=== PATIENT | female | born 1990 | race Caucasian/White ===

== ENCOUNTER 2017-01-21 05:20 | Inpatient (IN) ==
[2017-01-21] MEDS ORDERED: CITRIC ACID/SODIUM CITRATE 30 ML UDCUP PO ONE (05:33)
[2017-01-21] MEDS ORDERED: FAMOTIDINE 20 MG/2 ML VIAL IV ONE (05:33)
[2017-01-21] MEDS ORDERED: ceFAZolin 2,000 MG in PREMIX 1 EACH IV ONE (05:43)
[2017-01-21] MEDS: LACTATED RINGERS 1,000 ML IV SCH ×3 (05:50→21:45)
[2017-01-21 06:31] LABS: Basophils % 0.2 % (0.0-0.8); Eosinophils # 0.1 10*3/uL (0.0-0.87); Eosinophils % 0.5 % (0.00-10.9); Hematocrit 34.2 VOL% (35.7-47.0); Hemoglobin 11.8 GM/DL (12.0-16.0); Immature Granulocytes % 0.6 %; Immature Granulocytes Absolute 0.06 #; Lymphocytes # 2.5 10*3/uL (1.4-4.0); Lymphocytes % 27.1 % (21.3-54.2); Mean Corpuscular HGB Conc 34.5 GM/DL (32-36); Mean Corpuscular Hemoglobin 30 PG (27-34); Mean Corpuscular Volume 85.9 FL (87-102); Mean Platelet Volume 10.1 FL (9.6-12.0); Monocytes # 0.6 10*3/uL (0.11-0.8); Monocytes % 5.9 % (1.7-12.7); Neutrophils # 6.2 10*3/uL (1.4-7.4); Neutrophils % 65.7 % (38.7-73.9); Platelet Count 239 T/CUMM (130-400); Red Blood Count 3.98 MC/CUMM (3.8-5.5); Red Cell Distribution Width 13.4 % (9.3-17.3); White Blood Count 9.4 T/CUMM (4-12)
[2017-01-21 07:05] LABS: Alanine Aminotransferase 18 U/L (13-56); Albumin 2.6 G/DL (3.4-5.0); Alkaline Phosphatase 123 U/L (45-117); Aspartate Amino Transferase 19 U/L (0-37); Bilirubin,Total < 0.39 MG/DL (0.2-1.0); Blood Urea Nitrogen 11 MG/DL (7-18); Calcium 8.7 MG/DL (8.5-10.1); Glucose 80 MG/DL (74-106); Sodium 140 MMOL/L (136-145); Total Protein 6.1 G/DL (6.4-8.3)
[2017-01-21 07:06] LABS: Osmolality,Calculated 276.4 MOS/KG (273-304); Potassium 3.5 MMOL/L (3.5-5.1)
[2017-01-21] MEDS ORDERED: OXYTOCIN/LR 20 UNIT/1,000 ML BAG IV ONE ×4 (07:16→09:55)
--- NOTE | 2017-01-21 07:29 | OB/GYN History & Physical ---
History of Present Illness Chief complaint: at 39+ weeks previous admitted for elective repeat History of present illness: Ms. Martinez is a 26 year old female 2 para 1 at 39+ weeks estimated gestational age previous admitted for elective repeat. The risks benefits alternatives were explained patient detail and informed us is obtained for the above procedure Home Medications Medication Instructions Recorded Confirmed Type Folic Acid 1 tablet PO DAILY 01/21/17 01/21/17 History [place]-3 Fatty Acids [Fish Oil] 1 tablet PO DAILY 01/21/17 01/21/17 History No122/Iron/Folic Acid 1 tablet PO DAILY 01/21/17 01/21/17 History [ Multi Tablet] Allergies Allergy/AdvReac Type Severity Reaction Status Date / Time Amoxicillin Allergy Verified 10/31/16 20:10 12 point system: reviewed and no additional remarkable complaints except as stated Medical,Surgical,& Family Hx - Medical History Neurology: No history of: Seizures - Surgical History Reproductive Surgeries: Surgical HX of;: Section - Family History Family History: Reports;: Family Cancer (PGF BLADDER, MGF LUNG), Family Hypertension (DAD) - Social History Smoking Status: Never smoker Frequency of Alcohol Use: None Type of Drug Use: None Exam [employer] - Constitutional General appearance: no acute distress - Head Head exam: Present: normal inspection, normocephalic, atraumatic - Eye Eye exam: Present: EOMI - Neck Neck exam: Present: normal inspection - Respiratory Respiratory exam: Present: clear to auscultation bilaterally - Breast Breasts: as per HPI Menstruation: as per HPI - Cardiovascular Cardiovascular exam: Present: regular rate and rhythm - GI/Abdominal GI/Abdominal exam: Present: normal bowel sounds - Extremities Exam Extremities exam: Present: normal inspection, normal capillary refill - Back Exam Back exam: Present: normal inspection - Neurological Exam Neurological exam: Present: alert, oriented X3 - Psychiatric Psychiatric exam: Present: normal affect, normal mood - Skin Skin exam: Present: normal color Assessment and Plan (1) with 39 completed weeks gestation Status: Acute Current Visit: Yes (2) Previous section Status: Acute Current Visit: Yes Results - Labs CBC & BMP: 01/21/17 06:25 01/21/17 06:25
[2017-01-21] MEDS ORDERED: PHENYLEPHRINE 1 MG/10 ML SYRINGE IV ONE (07:46)
[2017-01-21] MEDS ORDERED: ONDANSETRON 4 MG/2 ML VIAL ONE (07:46)
[2017-01-21 09:47] LABS: Apearance,Urine CLEAR (Clear); Bilirubin,Urine Negative (Negative); Blood, Urine Negative (Negative); Glucose,Urine (UA) Negative (Negative); Ketones,Urine Negative (Negative); Mucus,Urine Occasional /LPF (Occasional); Nitrite,Urine Negative (Negative); Protein,Urine Negative; RBC,Urine <1 /HPF (0-4); Squamous Epithelial Cell,Urine Occasional /HPF (0-10); Urine Color Yellow (Yellow); Urine Specific Gravity 1.008 (1.001-1.035); Urine Urobilinogen < 2.0 EU/DL (0.2-1.0); WBC,Urine 2 /HPF (0-6)
[2017-01-21] MEDS ORDERED: MEASLES/MUMPS/RUBELLA VACCINE 0.5 ML VIAL SUBCUT ONE (09:55)
[2017-01-21] MEDS ORDERED: BISACODYL 10 MG SUPP RECTAL PRN (09:55)
[2017-01-21] MEDS ORDERED: ACETAMINOPHEN 325 MG TABLET PO PRN (09:55)
[2017-01-21] MEDS ORDERED: BENZOCAINE 20%/MENTHOL 0.5% SPRAY 56 GM CAN TOP PRN (09:55)
[2017-01-21] MEDS ORDERED: ONDANSETRON 4 MG/2 ML VIAL IV PRN (09:55)
[2017-01-21] MEDS ORDERED: oxyCODONE/ACETAMINOPHEN 5-325 MG TABLET PO PRN ×2 (09:55)
[2017-01-21] MEDS ORDERED: HYDROCORTISONE 2.5% RECTAL CREAM 30 GM TUBE TOP PRN (09:55)
[2017-01-21] MEDS ORDERED: RHO(D) IMMUNE GLOBULIN 300 MCG SYRINGE IM ONE (09:55)
[2017-01-21] MEDS ORDERED: LANOLIN 50% CREAM 0.3 OZ TUBE TOP PRN (09:55)
[2017-01-21] MEDS ORDERED: DIPH/TET/ACEL PERT BOOSTER VACCINE 0.5 ML VIAL IM ONE (09:55)
[2017-01-21] MEDS ORDERED: WITCH HAZEL PADS 100/JAR TOP PRN (09:55)
--- NOTE | 2017-01-21 09:55 | Operative Note ---
Date of procedure: 01/21/17 Pre-op diagnosis: 39 weeks previous Post-op diagnosis: same Procedure: This is Dr. Will dictating operative note: Preoperative diagnosis intrauterine intrauterine at [39] weeks previous Postoperative diagnosis same Procedure repeat low transverse section Surgeon Dr. Will Anesthesia spinal Findings liveborn [male] infant 9 pounds 10 ounces Complications none Estimated blood loss [400] mL Disposition patient to recovery room in [stable] condition. to nursery in [stable] condition Operative description: After the risks benefits and alternatives were explained to the patient in detail and informed consent was obtained, the patient was taken to the operating room where she was placed in the supine position. After achieving appropriate anesthesia the abdomen was prepped and draped in the usual sterile fashion. A Licea catheter was placed without difficulty. After the appropriate time out and after adequate anesthesia was ascertained a Pfannenstiel skin incision was made and carried down through the subcutaneous tissue down to the fascia. The fascia was nicked in the midportion and undermined and incised both laterally and cephalad using sharp dissection with the curved Baker scissors. 2 [place] clamps were used to elevate the rectus fascia superiorly which was bluntly and sharply dissected away from the rectus muscle below. This was repeated inferiorly. The rectus muscles were then bluntly in the midline the peritoneum identified grasped with 2 curved hemostats and entered sharply using the curved Metzenbaum scissors. A bladder blade was then placed in the pelvis and a bladder flap was created off the lower uterine segment using sharp dissection with the Metzenbaum scissors. The bladder blade was then repositioned. A transverse incision was made across the lower uterine segment down to the amnion. Entry into the amnion revealed [ clear] amniotic fluid. The uterine incision was then extended laterally using bilateral finger fractionation. Upon palpation the presenting part was [vertex ] which was gently elevated out of the pelvis and delivered onto the abdominal wall using appropriate fundal pressure. The infant's nose and oropharynx were bulb and DeLee suctioned and the had spontaneous cry delivery. The cord was doubly clamped and cut and the infant was handed over to the team for care. Cord blood was obtained. The placenta was delivered manually and IV Pitocin antibiotics and Zofran were begun. The uterus was then exteriorized and placed in a wet laparotomy sponge. 2 fingers wrapped around a wet laparotomy sponge were used to remove all residual membranes from the uterine cavity. The uterus was then closed in 2 layers. The first layer of myometrium was closed with #1 Monocryl suture in an inner locking fashion beginning at both angles and overlapping slightly in the midline. The second layer of myometrium was closed with #1 Monocryl suture in a running imbricating stitch beginning at the right angle and continuing the length of the uterine incision. Hemostasis was noted to be excellent. The posterior cul-de-sac was then irrigated and cleansed with a wet laparotomy sponge and the uterus was placed back in the abdominal cavity. Both pericolic gutters were then irrigated and cleansed with a wet lap sponge. The uterine incision was then re-irrigated and again noted to be hemostatic. All counts were noted to be correct. The subcutaneous tissue was then closed using 3-0 Vicryl suture in a running fashion. The subfascial area was made hemostatic using electrocautery and closed with #1 PDS suture in a running fashion beginning at both angles and overlapping slightly in the midline. The subcutaneous tissue was irrigated and made hemostatic using electrocautery and closed with 2-0 Vicryl suture in a running fashion and the skin was closed with wide skin gilda and a sterile pressure bandage was applied to the wound. All sponge needle and instrument counts were correct -3 at the end of the procedure. The patient's urine was [ clear] both at the beginning in the end of the procedure. The patient was taken to the recovery room in stable condition Anesthesia: spinal Surgeon / Physician: Hipolito Will Estimated blood loss: other (400) Specimens: none sent Condition: stable Disposition: floor Results - Labs CBC & BMP: 01/21/17 06:25 01/21/17 06:25 Discharge Plan - Discharge Medications No Action [place]-3 Fatty Acids [Fish Oil] 1 tablet PO DAILY Folic Acid 1 tablet PO DAILY No122/Iron/Folic Acid [ Multi Tablet] 1 tablet PO DAILY - Follow Up or Referral - Forms/Instructions
--- NOTE | 2017-01-21 11:00 | XRay Report ---
History is needle miscount AP and lateral film of the lower abdomen and pelvis performed. Abdominal wall gilda present. There is a tiny, 5 mm long thin metallic foreign body present in the soft tissues of the anterior abdominal wall just superior to the staple line. This is much smaller than would be expected from the clinically stated missing needle. The upper abdomen was not included on the film. An additional image could be considered to exclude a migrated peritoneal needle. Findings personally discussed with the ordering service at the 10:30 AM PROCEDURE INTERPRETED AT [facility] DEPARTMENT OF RADIOLOGY Final Report Signed by: Dr. Leonora Billy
[2017-01-21] MEDS ORDERED: fentaNYL 100 MCG/2 ML VIAL ONE (11:21)
[2017-01-21] MEDS ORDERED: MORPHINE 10 MG/10 ML VIAL ONE (11:22)
[2017-01-21] MEDS ORDERED: hydrOXYzine HCL 25 MG/1 ML VIAL IM PRN ×2 (11:35→13:25)
[2017-01-21] MEDS ORDERED: HYDROmorphone 2 MG/1 ML VIAL IV PRN (11:35)
[2017-01-21] MEDS ORDERED: diphenhydrAMINE 50 MG/1 ML VIAL IV PRN (11:35)
[2017-01-21] MEDS ORDERED: SODIUM CHLORIDE 0.9% 1,000 ML IV SCH (12:00)
[2017-01-21] MEDS ORDERED: LACTATED RINGERS 1,000 ML IV SCH (12:00)
[2017-01-21] MEDS ORDERED: PROMETHAZINE INJ 25 MG in SODIUM CHLORIDE 0.9% 50 ML IV PRN (12:40)
[2017-01-21] MEDS ORDERED: PROMETHAZINE 25 MG/1 ML VIAL ONE (12:41)
[2017-01-21] MEDS ORDERED: PROMETHAZINE INJ 25 MG in SODIUM CHLORIDE 0.9% 50 ML IM PRN (12:46)
[2017-01-21] MEDS ORDERED: PROMETHAZINE 25 MG/1 ML VIAL IM PRN (12:54)
--- NOTE | 2017-01-21 13:06 | Anesthesia Post-Op ---
Anesthesia Post OP - Post Ansesthetic Evaluation Patient seen in post op: Yes Resp: within normal limits CV: within normal limits Mental: within normal limits Temp: within normal limits [id number]-[id number]-[id number]: within normal limits Nausea and Vomiting: within normal limits Pain: within normal limits
[2017-01-21] MEDS ORDERED: OXYTOCIN 10 UNIT/ML VIAL ONE (13:27)
[2017-01-21] MEDS ORDERED: FUROSEMIDE 40 MG/4 ML VIAL IV ONE (20:11)
[2017-01-21] MEDS: DOCUSATE SODIUM 100 MG CAPSULE PO SCH (20:33)
[2017-01-22 06:48] LABS: Basophils % 0.3 % (0.0-0.8); Eosinophils # 0.1 10*3/uL (0.0-0.87); Eosinophils % 0.4 % (0.00-10.9); Hemoglobin 11.4 GM/DL (12.0-16.0); Immature Granulocytes % 0.4 %; Immature Granulocytes Absolute 0.05 #; Lymphocytes # 1.7 10*3/uL (1.4-4.0); Lymphocytes % 13.9 % (21.3-54.2); Mean Corpuscular HGB Conc 34.5 GM/DL (32-36); Mean Corpuscular Hemoglobin 30 PG (27-34); Mean Corpuscular Volume 85.7 FL (87-102); Mean Platelet Volume 10.2 FL (9.6-12.0); Monocytes # 0.8 10*3/uL (0.11-0.8); Monocytes % 6.6 % (1.7-12.7); Neutrophils # 9.3 10*3/uL (1.4-7.4); Neutrophils % 78.4 % (38.7-73.9); Platelet Count 191 T/CUMM (130-400); Red Blood Count 3.85 MC/CUMM (3.8-5.5); Red Cell Distribution Width 13.6 % (9.3-17.3); White Blood Count 11.9 T/CUMM (4-12)
--- NOTE | 2017-01-22 07:05 | OB/GYN Progress Note ---
Assessment and Plan (1) with 39 completed weeks gestation Status: Acute Current Visit: Yes (2) Previous section Status: Acute Current Visit: Yes TRUMPET PLAYER - PN: Subj Interval history: Patient is doing well. She is tolerating her diet. She is alert and oriented -3 Cardiovascular regular rate and rhythm Lungs clear to auscultation Abdomen soft with appropriate tenderness and bowel sounds are present and her incision is dry no bleeding Is good refill HEENT shows pink conjunctiva ssessment 1 day of surgery doing well Plan continue present management with expected DC in a.m. Exam TRUMPET PLAYER - Constitutional Vitals: Vital Signs Temp Pulse Pulse Resp BP Pulse Ox 01/22/17 06:47 18 01/22/17 05:00 17 01/22/17 04:00 97.5 F L 83 17 97/58 97 01/21/17 23:59 97.5 F L 94 H 18 98/61 98 01/21/17 20:00 98.2 F 84 18 113/72 100 01/21/17 15:45 98.1 F 85 20 99/54 97 01/21/17 14:45 88 20 116/59 99 01/21/17 13:45 84 18 96/48 97 01/21/17 13:15 90 109/68 97 01/21/17 12:45 97.8 F 95 H 20 99/71 97 01/21/17 08:00 98 F 88 20 118/68 Results - Labs CBC & BMP: 01/22/17 06:28 01/21/17 06:25
[2017-01-22] MEDS ORDERED: INFLUENZA VIRUS VACCINE 0.5 ML SYRINGE IM ONE (08:00)
[2017-01-22] MEDS: DOCUSATE SODIUM 100 MG CAPSULE PO SCH ×2 (09:50→21:42)
[2017-01-22] MEDS: IBUPROFEN 800 MG TABLET PO PRN ×2 (10:58→18:20)
[2017-01-22] MEDS ORDERED: SIMETHICONE CHEW 80 MG TABLET PO PRN (18:09)
[2017-01-22] MEDS ORDERED: RHO(D) IMMUNE GLOBULIN 300 MCG SYRINGE IM ONE (18:09)
[2017-01-22] MEDS ORDERED: MAGNESIUM HYDROXIDE SUSP 30 ML UDCUP PO PRN (18:24)
--- NOTE | 2017-01-23 07:05 | Discharge Summary ---
Hospital Course - Hospital Course Hospital Course: Postoperatively the patient did well. She had quick return of bowel bladder function. Remained afebrile and normotensive throughout her hospitalization. She is counseled discharged on postoperative day #2 on a regular diet. Diagnosis - Discharge Diagnosis (1) with 39 completed weeks gestation Status: Acute (2) Previous section Status: Acute Discharge Plan - Discharge Data Disposition: Disch To Home/Self Care Condition at Discharge: Stable Discharge Diet: regular diet Activity: increase activity as tolerated, no lifting, other (Pelvic rest) Hygiene: may shower Weight Bearing at Discharge: full weight bearing Driving: not until seen by doctor Contact your physician if you experience:: fever over 101, Difficulty voiding, Redness or swelling, Nausea/Vomiting, Shortness of breath, Bleeding, pain uncontrolled by pain medications - Discharge Medications New Ibuprofen Tab [Motrin Tab] 800 mg PO Q6H PRN tablet PRN Reason: Pain Moderate (4-7) Acetaminophen Tab [Tylenol Tab] 650 mg PO Q6H PRN tablet PRN Reason: Fever > 100.4 Or Headache oxyCODONE/ACETAMINOPHEN 5-325 [Percocet 5-325] 1 tablet PO Q6H PRN #20 tablet PRN Reason: Pain Severe (8-10) Continue [place]-3 Fatty Acids [Fish Oil] 1 tablet PO DAILY Folic Acid 1 tablet PO DAILY No122/Iron/Folic Acid [ Multi Tablet] 1 tablet PO DAILY - Follow Up or Referral Follow Up: Hipolito Will MD [Family Provider] - 1 Week - Forms/Instructions Exam - Constitutional Vitals: Period Temp Pulse Resp BP Sys/Tejeda Pulse Ox Last 24 Hr 96.8 F-98.8 F 74-94 18-20 94-113/57-67 98-98 Discharge Results Labs on day of discharge: Labs from last 24 hours 01/22/17 06:28 Blood Type B NEGATIVE Antibody Screen Positive Screen Negative DS: Provider Date of admission: 01/21/17 05:36 Primary care physician: Tao Lopez Attending physician on admission: Pat Odonnell Consults: 01/21/17 05:36 Consult to Anesthesiology [CONS] Routine Consulting Provider: Reason for Anesthesiology: Pre-op Clearance 01/21/17 09:55 Consult to Cupola Patcher [CONS] Routine Consult Cupola Patcher: Breast Feeding Discharging clinician: Pat Odonnell Expected date of discharge: 01/23/17
[2017-01-23 07:27] VITALS: BP 98/64
[2017-01-23] MEDS: DOCUSATE SODIUM 100 MG CAPSULE PO SCH (08:49)
== END 2017-01-23 12:30 | disposition home or self-care (01) | DRG 766 ==
LOC: N.LDOUT 05:20 → N.LD 05:22 → N.OB 12:43
PROVIDERS: ADMIT Specialist; ATTEND Specialist
PROC: LDCSECT (ICD-10-PCS; 2017-01-21 08:45)